=== PATIENT | male | born 1995 | race African-American/Black ===

== ENCOUNTER 2016-10-06 21:25 | Emergency (ER) ==
[2016-10-06] MEDS ORDERED: NS 1,000 ML IV ONE (22:44)
[2016-10-06] MEDS ORDERED: HUMULIN R DOSE (PARKWAY) IV ONE (22:44)
[2016-10-06 22:49] LABS: MANUAL DIFF NEEDED? NO
[2016-10-06 22:57] LABS: BASO% 0.3 % (0.0-0.8); EOS# 0.32 X1000 (0.0-0.7); HEMATOCRIT 45.2 % (42.0-52.0); HEMOGLOBIN 15.1 g/dL (14.0-18.0); IMM GRAN# 0.02 X1000 (0.0-0.04); IMM GRAN% 0.2 % (0.0-0.5); MCH 31.2 PG (27-31); MCHC 33.4 g/dL (33-37); MCV 93.4 FL (81-99); MONO# 1.03 X1000 (0.11-0.59); MONO% 9.8 % (1.7-9.3); NEUT% 49.7 % (42.2-75.2); PLT 245 X1000 (130-400); RBC 4.84 XMIL (4.7-6.1)
[2016-10-06 23:05] LABS: BE 3.2 mmoll (-3.0-3.0); DRAW SITE R BRACHIAL; METHB 0.8 % (0.0-1.5); O2(CT) 7.8 mL/dL (15.0-23.0); SAMPLE BLOOD; SAO2 42.5 % (95.0-100.0); THB 13.9 g/dL (11.5-17.4); pH(98.6) 7.36 (7.35-7.45)
[2016-10-06 23:11] LABS: ALLEN TEST NO; MODALITY ROOM AIR; PCO2(98.6) 53 mmHg (35-45); PO2(98.6) 23 mmHg (60-100)
[2016-10-06 23:28] LABS: MAGNESIUM 1.8 mg/dL (1.5-2.7)
[2016-10-06 23:46] LABS: AGAP 12; ALBUMIN 4.2 g/dL (3.5-5.0); ALKALINE PHOSPHATASE 104 U/L (32-122); BUN 13 mg/dL (8-22); CALCIUM 9.7 mg/dL (8.8-10.2); CHLORIDE 97 mmol/L (98-107); COSMO 286; GOT 24 U/L (10-34); GPT 29 U/L (10-44); POTASSIUM 4.1 mmol/L (3.5-5.1); SODIUM 134 mmol/L (136-145); TCO2 25 mmol/L (25-35); TOTAL PROTEIN 7.2 g/dL (6.3-8.3)
[2016-10-06 23:54] LABS: ACETONE SERUM NEGATIVE (NEGATIVE)
--- NOTE | 2016-10-07 00:18 | PROVIDER DOCUMENTATION ---
HPI-General Adult - General Chief Complaint: High Blood Sugar Stated Complaint: HIGH SUGAR/DIZZY Time Seen by Provider: 10/06/16 23:40 Source: patient Allergies/Adverse Reactions: Patient Allergies Allergy/AdvReac Type Severity Reaction Status Date / Time No Known Allergies Allergy Verified 10/06/16 22:00 Home Medications: Home Medication List Medication Instructions Recorded Confirmed Last Taken Type Metformin [Glucophage] 1,000 mg PO WBREAKFAST #60 tablet 10/07/16 Unknown Rx - History of Present Illness -Gen Adult Nature of Presenting Problems: 21 y/o BM c/o hyperglycemia x 1 day. States that he has some dizziness sometimes. Denies any abd. pain, N/V/D, fever/chills, urinary sxs, BECK, vision changes. States hasn't taken oral meds or insulin x 2 months. Reports novalog x 3 daily 12 units, levamir 32 units qhs, and metformin 100 mg PO qAM. Review of Systems - Adult - REVIEW OF SYSTEMS - ADULT Constitutional: reports: no symptoms reported. denies: chills, fever Eyes: reports: no symptoms reported. denies: blurred vision, double vision Ears, Nose, Mouth & Throat: reports: no symptoms reported. denies: ear pain, nose pain Cardiovascular: reports: no symptoms reported. denies: chest pain, palpitations Respiratory: reports: no symptoms reported. denies: dyspnea on exertion, shortness of breath Gastrointestinal: reports: no symptoms reported. denies: abdominal pain, nausea , vomiting Genitourinary: reports: no symptoms reported. denies: dysuria, frequency Musculoskeletal: reports: no symptoms reported. denies: joint pain, joint swelling Integumentary: reports: no symptoms reported. denies: nail changes, rash Neurological: reports: see HPI, dizziness/vertigo. denies: headache/migraines, numbness, paresthesia Psychiatric: reports: no symptoms reported Endocrine: reports: no symptoms reported. denies: cold intolerance, heat intolerance Hematologic/Lymphatic: reports: no symptoms reported. denies: easy bruising, prolonged bleeding Allergic/Immunologic: reports: no symptoms reported All Other Systems: Reviewed and Negative Past History - Adult - PAST MEDICAL HISTORY-ADULT Review of Records: reports: Nursing Assessment Review, Medications Reviewed - SOCIAL HISTORY Smoking: cigarettes, less than 1 pack/day Provider spent 3-5 mins advising pt. on dangers of tobacco.: Discussed manners to quit use, and f/u contacts for add'l counseling. Physical Exam-General - PHYSICAL EXAM-ADULT Initial Vital Signs Reviewed: Yes - CONSTITUTIONAL General Appearance: appears well, alert, no apparent distress - EYES Eyes: PERRL/EOMI, pink conjunctivae. negative: EOM palsy - HEAD, EARS, NOSE, MOUTH & THROAT HENMT: normocephalic/atraumatic, moist mucous membranes. negative: hearing deficit - NECK Neck: full range of motion, supple, normal inspection - RESPIRATORY Respiratory: lungs clear, normal breath sounds. negative: crackles, rales, rhonchi, stridor, wheezing - CARDIOVASCULAR Cardiovascular: regular rate, rhythm. negative: bradycardia, tachycardia - GASTROINTESTINAL (ABDOMEN) Abdominal Exam: normal bowel sounds, non tender, soft. negative: distended, guarding, rigid - MUSCULOSKELETAL Back Exam: normal inspection Extremity: normal gait - SKIN Integumentary: normal color, normal turgor, warm/dry - NEUROLOGIC Neurologic: product marketing analyst II-XII nml as tested. negative: aphasia, EOM palsy, facial droop, focal weakness, motor weakness - PSYCHIATRIC Psych/Mental Status: normal mood/affect, normal thought content, normal thought process, oriented x 3 Progress - PLAN OF CARE/RESULTS Progress/Plan/Lab Results: Laboratory Tests 10/06/16 10/06/16 10/06/16 22:05 22:20 22:20 WBC 10.55 RBC 4.84 Hgb 15.1 Hct 45.2 MCV 93.4 MCH 31.2 H MCHC 33.4 RDW Std Deviation 12.3 Plt Count 245 MPV 11.0 H Immature Gran % (Auto) 0.2 Neut % (Auto) 49.7 Lymph % (Auto) 37.0 [place] % (Auto) 9.8 H Eos % (Auto) 3.0 Baso % (Auto) 0.3 Immature Gran # (Auto) 0.02 Neut # (Auto) 5.25 Lymph # (Auto) 3.90 H [place] # (Auto) 1.03 H Eos # (Auto) 0.32 Baso # (Auto) 0.03 Specimen Type Sample Site pH pCO2 pO2 HCO3 Base Excess Oxyhemoglobin ABG O2 Sat (Calculated) ABG O2 Saturation ABG Carboxyhemoglobin ABG Methemoglobin Mahamed Test A-a O2 Difference Total Hemoglobin Lactate Blood Gas Modality FiO2 % Sodium 134 L Potassium 4.1 Chloride 97 L Carbon Dioxide 25 Anion Gap 12 BUN 13 Creatinine 0.7 Estimated GFR/1.73 m2 > 60 BUN/Creatinine Ratio 19 Glucose 410 H* POC Glucose 327 H Calculated Osmolality 286 Calcium 9.7 Phosphorus Magnesium Total Bilirubin 0.20 AST 24 ALT 29 Alkaline Phosphatase 104 Total Protein 7.2 Albumin 4.2 Globulin 3.0 Albumin/Globulin Ratio 1.0 Acetone Level 10/06/16 10/06/16 10/06/16 22:20 22:50 23:29 WBC RBC Hgb Hct MCV MCH MCHC RDW Std Deviation Plt Count MPV Immature Gran % (Auto) Neut % (Auto) Lymph % (Auto) [place] % (Auto) Eos % (Auto) Baso % (Auto) Immature Gran # (Auto) Neut # (Auto) Lymph # (Auto) [place] # (Auto) Eos # (Auto) Baso # (Auto) Specimen Type VENOUS Sample Site R BRACHIAL pH 7.36 pCO2 53 H* pO2 23 L* HCO3 25.8 Base Excess 3.2 H Oxyhemoglobin 40.1 L* ABG O2 Sat (Calculated) 7.8 L ABG O2 Saturation 42.5 L ABG Carboxyhemoglobin 4.90 H ABG Methemoglobin 0.8 Mahamed Test NO A-a O2 Difference 60.0 Total Hemoglobin 13.9 Lactate 1.70 Blood Gas Modality ROOM AIR FiO2 % 21.0 Sodium Potassium Chloride Carbon Dioxide Anion Gap BUN Creatinine Estimated GFR/1.73 m2 BUN/Creatinine Ratio Glucose POC Glucose 241 H Calculated Osmolality Calcium Phosphorus 3.9 Magnesium 1.8 Total Bilirubin AST ALT Alkaline Phosphatase Total Protein Albumin Globulin Albumin/Globulin Ratio Acetone Level NEGATIVE Orders Category Date Time Status FSBS [Finger Stick Blood Sugar (ED)] DIRECTED Care 10/06/16 23:57 Active ABG [RESP] Routine Lab 10/06/16 22:50 Completed ACETONE SERUM [CHEM] Stat Lab 10/06/16 22:20 Completed CBC WITH ELECTRONIC DIFF [HEME] Stat Lab 10/06/16 22:20 Completed CMP [COMPREHENSIVE METABOLIC PANEL] [CHEM] Stat Lab 10/06/16 22:20 Completed MAGNESIUM [CHEM] Stat Lab 10/06/16 22:20 Completed phos [PHOSPHORUS] [CHEM] Stat Lab 10/06/16 22:20 Completed 0.9% Sodium Chloride Inj [Ns] 1,000 ml Med 10/06/16 22:44 Discontinued IV 999 mls/hr Insulin Human Reg Dose ([address] [Humulin R Dose ([place] Med 10/06/16 22:44 Discontinued )] 10 dose IV NOW ONE Vital Signs Temp Pulse Resp BP Pulse Ox 10/07/16 01:07 97.0 F L 68 18 121/77 100 10/06/16 21:56 98.9 F 89 18 125/73 100 No Known Allergies Allergy (Verified 10/06/16 22:00) Metformin [Glucophage] 1,000 mg PO WBREAKFAST #60 tablet 10/07/16 TYPE 2 DIABETES MELLITUS WITH HYPERGLYCEMIA (10/06/16) NICOTINE DEPENDENCE, CIGARETTES, UNCOMPLICATED (10/06/16) DIZZINESS AND GIDDINESS (10/06/16) TOBACCO ABUSE COUNSELING (10/06/16) PATIENT'S OTHER NONCOMPLIANCE WITH MEDICATION REGIMEN (10/06/16) Laboratory 10/06/16 22:50 Specimen Type VENOUS Sample Site R BRACHIAL pH 7.36 pCO2 53 H* pO2 23 L* HCO3 25.8 Base Excess 3.2 H Oxyhemoglobin 40.1 L* ABG O2 Sat (Calculated) 7.8 L ABG O2 Saturation 42.5 L ABG Carboxyhemoglobin 4.90 H ABG Methemoglobin 0.8 Mahamed Test NO A-a O2 Difference 60.0 Total Hemoglobin 13.9 Lactate 1.70 Blood Gas Modality ROOM AIR FiO2 % 21.[address] Landa, including ABG labwork and improvement of FSBS; he agreed with d/c home. Departure - Departure Time of Disposition Order: 00:22 DIAGNOSIS: Hyperglycemia, Non compliance with medical treatment Disposition: HOME 01 Certified Medical Emergency: Emergent Condition: Stable Additional Instructions: Take medications as directed. Follow up with PCP for further management. Drink plenty of fluids. Tylenol for any headache. ED Follow Up Instructions: You have been treated by a care provider in the Emergency Department. These instructions are being provided to you so you can have an understanding of how to care for yourself upon discharge. Upon discharge from the Emergency Department, you are responsible for making arrangements for follow-up care by a physician of your choice. Take all prescribed medications as directed. Return to the Emergency Department immediately for any new or worsening symptoms. You may call the Physician Referral phone number at [phone] to obtain a list of Physicians who are taking new patients. Prescriptions: Metformin [Glucophage] 1,000 mg PO WBREAKFAST #60 tablet Referrals: None,PCP [Primary Care Provider] - Forms: Return to School/Parent Work Instructions: Hyperglycemia, [id number], Metformin tablets Attestation - Physician/ MARTIN Attestation Patient care was provided by Advanced Practice Provider:: Yes Advanced Practice Provider:: Cristina Joshi Advanced Practice Provider documentation review:: The Mid-level provider documentation, treatment plan and medical decision making was reviewed by the physician who agrees with all treatment and medical decision making by the MLP.
[2016-10-07 01:07] VITALS: BP 121/77
[2016-10-09 14:38] LABS: BLOOD TYPE VENOUS
== END 2016-10-07 01:07 | disposition home or self-care (01) ==
LOC: P.ED 21:25
DX: E11.65 Type 2 diabetes mellitus with hyperglycemia (principal); Z91.14 Patient's other noncompliance with medication regimen; R42 Dizziness and giddiness; F17.210 Nicotine dependence, cigarettes, uncomplicated; Z71.6 Tobacco abuse counseling
CPT/HCPCS: 80053; 82009; 82805; 82948; 83735; 84100; 85025; 96361; 96374; J1815; J7030